=== PATIENT | male | born 1980 | race Caucasian/White ===

== ENCOUNTER → 2024-10-10 | Outpatient (CLI) | payer BC ==
--- NOTE | 2024-10-10 10:42 | XR ---
EXAMINATION TYPE: XR chest 2V DATE OF EXAM: 10/10/2024 10:33 AM COMPARISON: None. CLINICAL INDICATION: Male, 44 years old with history of R05.9 COUGH, UNSPECIFIED, TECHNIQUE: XR chest 2V view(s) obtained. FINDINGS: The heart size is normal. The pulmonary vasculature is normal. The lungs are clear. IMPRESSION: 1. No acute pulmonary process. [facility], , 10/10/2024 10:40 AM
== END | disposition home or self-care (01) ==
LOC: RADXRMAIN 10:15
PROVIDERS: ATTEND Internal Medicine
DX: R05.9 Cough, unspecified (principal)
CPT/HCPCS: 71046